=== PATIENT | female | born 1960 | race Caucasian/White ===

== ENCOUNTER → 2018-01-22 | Outpatient (CLI) | payer MEDICARE, MEDICAID | END | disposition home or self-care (01) | LOC: MERGE 01-20 10:00 → RAD 09:36 | PROVIDERS: ATTEND Psychiatry & Neurology Psychiatry | DX: G81.01 Flaccid hemiplegia affecting right dominant side (principal); R53.1 Weakness | CPT/HCPCS: 70551 ==